=== PATIENT | male | born 1985 | race Two or more races ===

== ENCOUNTER 2022-07-13 13:26 | Emergency (ER) | payer OTHER ==
[~2022-07-13] VITALS: Ht 167.6 cm; Wt 90.3 kg
[2022-07-13 13:48] VITALS: BP 115/74
== END 2022-07-13 15:14 | disposition home or self-care (01) ==
LOC: ER 13:38
DX: S90.111A Contusion of right great toe without damage to nail, initial encounter (principal); W22.8XXA Striking against or struck by other objects, initial encounter; Y93.89 Activity, other specified; Y92.89 Other specified places as the place of occurrence of the external cause; Y99.8 Other external cause status
CPT/HCPCS: 73660-TC